=== PATIENT | male | born 1940 | race Caucasian/White ===

== ENCOUNTER 2017-09-11 11:04 | Inpatient (IN) | payer OTHER ==
[~2017-09-11] VITALS: Ht 177.8 cm; Wt 113.4 kg
[~2017-09-11 11:04] MED LIST: ACETAMINOPHEN-1 EAC3 PO; ALLOPURINOL300 M1 PO; ATORVASTATIN CA40 M1 PO; AZITHROMYCIN250 M1 PO; CARDIZEM LA120 MG PO; FISH OIL 1,2001 EAC1 PO; IRBESARTAN150 M1 PO; METOLAZONE2.5 M1 PO; MULTIVITAMINS1 EAC9 PO; POTASSIUM CHLO10 ME5 PO; PREDNISONE10 M2 PO; SAVAYSA30 MG PO; SPIRIVA18 MCG INH; TAMSULOSIN HCL0.4 M1 PO; TOPROL XL100 M1 PO; TORSEMIDE20 M1 PO; VENTOLIN HFA18 GM INH; ZETIA10 M1 PO
--- NOTE | 2017-09-11 11:36 | ED UPPER/LOWER EXTREMITY COMPL ---
History of Present Illness General Chief Complaint: Lower Extremity Problems Stated Complaint: ?CELLULITIS R LEG Source: patient, old records Exam Limitations: no limitations Vital Signs & Intake/Output Vital Signs & Intake/Output Vital Signs Date Time Temp Pulse Resp B/P B/P Pulse O2 O2 Flow FiO2 Mean Ox Delivery Rate 09/11 1115 98.4 60 16 122/80 98 Room Air Allergies Coded Allergies: NO KNOWN ALLERGIES (07/18/15) Reconcile Medications Acetaminophen With Codeine (Acetaminophen-Cod #3 Tablet) 300 MG-30 MG TABLET 1 TAB PO TIDPRN PRN PAIN CONTROL (Reported) Albuterol Sulfate (Ventolin Hfa) 90 MCG HFA.AER.AD 2 PUF INH Q4-6 PRN PRN COPD (Reported) Allopurinol 300 MG TABLET 1 TAB PO DAILY GOUT (Reported) Atorvastatin Calcium 40 MG TABLET 1 TAB PO DAILY HEART HEALTH (Reported) Azithromycin 250 MG TABLET 1 TAB PO DAILY Bronchitis Diltiazem HCl (Cardizem LA) 120 MG TAB.ER.24H 1 TAB PO DAILY HEART HEALTH ( Reported) Edoxaban Tosylate (Savaysa) 30 MG TABLET 1 TAB PO DAILY HEART HEALTH ( Reported) Ezetimibe (Zetia) 10 MG TABLET 1 TAB PO DAILY HEART HEALTH (Reported) Irbesartan 150 MG TABLET 1 TAB PO DAILY HEART HEALTH (Reported) Metolazone 2.5 MG TABLET 1 TAB PO SEE ADMIN CRITERIA Diuretic (Reported) One tab, every 4-5 days Metoprolol Succ XL (Toprol XL) 100 MG TAB.ER.24H 1 TAB PO DAILY HEART HEALTH (Reported) Multiple Vitamin (Multivitamins) 1 EACH TABLET 1 TAB PO DAILY VITAMIN SUPPORT (Reported) [place]-3 Fatty Acids/Fish Oil (Fish Oil 1,200 MG Softgel) 360 MG-1,200 MG CAPSULE.DR 2 SGL PO BID HEART HEALTH (Reported) Potassium Chloride 10 MEQ TAB.ER.PRT 3 TAB PO DAILY ELECTROLYTES (Reported) Prednisone 10 MG TABLET 0 PO DAILY COPD On Take -17 30 MG 18/17-2017 20 MG /- 10 MG Then stop. Tamsulosin HCl 0.4 MG CAP.ER.24H 1 CAP PO DAILY URINE FLOW (Reported) Tiotropium [place] (Spiriva) 18 MCG CAP.W.DEV 1 CAP INH DAILY COPD (Reported) Torsemide 20 MG TABLET 1 TAB PO DAILY HEART HEALTH (Reported) Triage Note: PT TO ED FOR R LL CELLULITIS SINCE WEDNESDAY, STARTED ON KEFLEX WEDNESDAY WITH IMPROVEMENT. Triage Nurses Notes Reviewed? yes Past History Travel History Traveled to [place] past 21 day No Medical History Any Pertinent Medical History? see below for history Neurological: NONE EENT: NONE Cardiovascular: hypertension, AFIB, CHF Respiratory: COPD, history of mild bronchitis and severe obstructive lung disease. Gastrointestinal: NONE Hepatic: NONE Renal: benign prost hyperplasia, "KIDNEY PROBLEMS" Musculoskeletal: gout, osteoarthritis Psychiatric: NONE Endocrine: NONE Blood Disorders: NONE Cancer(s): NONE SHEEPSKIN PICKLER/Reproductive: NONE Other Medical Hx: gout, history of prostate cancer status post radiation, History of MRSA: No History of VRE: No History of CDIFF: No Influenza Vaccine: 06/30/17 Surgical History Surgical History: none Psychosocial History Who do you live with Son What is your primary language Belarusian Tobacco Use: Never used ETOH Use: occasional use Illicit Drug Use: denies illicit drug use Progress Plan of Care: Orders Procedure Date/time Status Patient Data 09/11 1243 Active ED Holding Orders 09/11 1236 Active Admit to inpatient 09/11 1236 Active Vital Signs 09/11 1236 Active Code Status 09/11 1236 Active BLOOD CULTURE 09/11 1140 Active TROPONIN LEVEL 09/11 1140 Complete PARTIAL THROMBOPLASTIN TIME 09/11 1140 Complete PROTHROMBIN TIME 09/11 1140 Complete C-REACTIVE PROTEIN 09/11 1140 Complete COMPREHENSIVE METABOLIC PANEL 09/11 1140 Complete CBC WITHOUT DIFFERENTIAL 09/11 1140 Complete EKG 09/11 1140 Active Current Medications Sig/Joslyn Start time Last Medication Dose Stop Time Status Admin Potassium Chloride 60 MEQ ONCE ONE 09/11 1245 UNVr (K-Dur) 09/11 1246 Potassium Chloride 10 MEQ ONCE ONE 09/11 1245 UNVr 09/11 1246 Laboratory Tests 09/11/17 1200: Anion Gap 15, Estimated GFR 54 L, BUN/Creatinine Ratio 21.5, Glucose 127 H, Calcium 9.1, Total Bilirubin 1.0, AST 28, ALT 40, Alkaline Phosphatase 81, Troponin I < 0.01, C-Reactive Prot, Quant 4.5 H, Total Protein 6.0 L, Albumin 3.4 L, Globulin 2.6, Albumin/Globulin Ratio 1.3, PT 16.3 H, INR 1.56 H, APTT 36, CBC w Diff NO MAN DIFF REQ, RBC 3.98 L, MCV 98.4 H, MCH 32.6 H, RDW 14.1, MPV 7.5, Gran % 73.9, Lymphocytes % 15.1 L, Monocytes % 8.9, Eosinophils % 2.0, Basophils % 0.1, Absolute Granulocytes 5.6, Absolute Lymphocytes 1.1 L, Absolute Monocytes 0.7 H, Absolute Eosinophils 0.2, Absolute Basophils 0, PUBS MCHC 33.1 Microbiology 09/11 1200 BLOOD: Blood Culture - RECD 09/11 1150 BLOOD: Blood Culture - RECD Departure Departure Time of Disposition: 1236 Disposition: STILL A PATIENT Condition: Stable Clinical Impression Primary Impression: Cellulitis of right leg Secondary Impressions: Hypokalemia Referrals: Adin KENNEY,Mark Nelson (PCP/Family) Departure Forms: Customer Survey General Discharge Information Admission Note Spoke With: Khai May MD Documentation of Exam: Documentation of any treatments & extenuating circumstances including Concerns Regarding Discharge (functional status, medication knowledge or non-compliance, living conditions, etc.) that warrant an admission rather than observation: [ RIGHT LEG CELLULITIS FAILING OUTPATIENT ABX X 3 DAYS, INCREASE PAIN AND REDNESS ON RIGHT SIDE, NOW WITH SKIN OPENING, NEWLY DIAGNOSED DIABETIC. WILL REQUIRE WOUND CARE, LEG ELEVATION, IV ABX, PO/IV POTASSIUM, RECHECK ELECTROLYTES, SUSPECT WILL REQUIRE MULTIPLE DAY ADMISSION]
[2017-09-11 12:07] LABS: ABSOLUTE BASOPHIL COUNT 0 /CUMM (0.0-0.2); ABSOLUTE EOSINOPHIL COUNT 0.2 /CUMM (0.0-0.7); ABSOLUTE GRANULOCYTE CT 5.6 /CUMM (1.4-6.5); ABSOLUTE LYMPH COUNT 1.1 /CUMM (1.2-3.4); ABSOLUTE MONOCYTE COUNT 0.7 /CUMM (0.10-0.60); BASOPHIL % 0.1 % (0.0-2.0); GRANULOCYTE % 73.9 % (42.2-75.2); HEMATOCRIT 39.1 % (42-52); MEAN CORPUSCULAR HGB 32.6 PG (27.0-31.0); MEAN CORPUSCULAR HGB CONC 33.1 G/DL (33.0-37.0); MEAN CORPUSCULAR VOLUME 98.4 FL (80.0-94.0); MEAN PLATELET VOLUME 7.5 FL (7.4-10.4); PLATELET COUNT 282 /CUMM (130-400); RBC DISTRIBUTION WIDTH 14.1 % (11.5-14.5); RED BLOOD CELL CT 3.98 /CUMM (4.70-6.10); WHITE BLOOD CELL COUNT 7.6 /CUMM (4.8-10.8)
[2017-09-11 12:30] LABS: PT 16.3 SEC (9.4-12.5); PTT 36 SEC (25-37)
--- NOTE | 2017-09-11 13:40 | History & Physical ---
Gregor Guerrero 09/11/17 1339: General Information and HPI MD Statement: I have seen and personally examined SAAD CAST and documented this H&P. The patient is a 76 year old M who presented with a patient stated chief complaint of [right lower extremity cellulitis]. Source of Information: patient, old records Exam Limitations: no limitations History of Present Illness: This is 76-year-old man with medical history significant for CHF with diastolic dysfunction, A.fib on edoxaban, HTN, BPH, Prostate Ca s/p radiation(2003), CABG( 2003), prior [place] (2003), ADONIS not compliant with CPAP, recently discharged from [facility] in July 2017. Patient presented to the emergency department with a chief complaint of right lower extremity cellulitis. According to the patient the symptoms started on Wednesday as warm, red and tender lesion, he went to see his loss prevention associate on Wednesday who prescribed him by mouth Keflex and recommended to him that if the cellulitis did not improve to come to the emergency department for further evaluation, patient stated that the antibiotic take the edge of the tenderness but it's still painful and the lesion did not improve. Patient reports being diagnosed with a diabetes mellitus by his loss prevention associate currently is not on any medication. Patient deny any systemic fever, chills, trauma, insect bite. He also denies any chest pain, shortness of breath, heart racing, abdominal pain, nausea, vomiting, diarrhea, hematuria, dysuria. In ED patient was started on IV Unasyn, also received a total of 17 mEq of potassium, 10 IV and 60 by mouth as his potassium level was 2.8. Allergies/Medications Allergies: Coded Allergies: NO KNOWN ALLERGIES (07/18/15) Past History Travel History Traveled to [place] past 21 day No Medical History Neurological: NONE EENT: NONE Cardiovascular: hypertension, AFIB, CHF Respiratory: COPD, history of mild bronchitis and severe obstructive lung disease. Gastrointestinal: NONE Hepatic: NONE Renal: benign prost hyperplasia, "KIDNEY PROBLEMS" Musculoskeletal: gout, osteoarthritis Psychiatric: NONE Endocrine: NONE Blood Disorders: NONE Cancer(s): NONE [employer]IST/Reproductive: NONE Other Medical Hx: gout, history of prostate cancer status post radiation, History of MRSA: No History of VRE: No History of CDIFF: No Influenza Vaccine: 06/30/17 Surgical History Surgical History: none Past Family/Social History Psychosocial History ETOH Use: occasional use Illicit Drug Use: denies illicit drug use Review of Systems Review of Systems Constitutional: Reports: see HPI. Cardiovascular: Reports: see HPI. Respiratory: Reports: see HPI. GI: Reports: see HPI. Genitourinary: Reports: see HPI. Exam & Diagnostic Data Last 24 Hrs of Vital Signs/I&O Vital Signs Date Time Temp Pulse Resp B/P B/P Pulse O2 O2 Flow FiO2 Mean Ox Delivery Rate 09/11 2050 Room Air 09/11 1629 72 120/60 09/11 1629 72 120/60 09/11 1628 72 120/60 09/11 1602 98.1 72 20 120/60 97 Room Air 09/11 1433 98.7 70 20 123/60 98 Room Air 09/11 1249 98.3 73 20 114/63 96 Room Air 09/11 1115 98.4 60 16 122/80 98 Room Air Intake & Output 09/11 1600 09/11 0800 09/11 0000 Intake Total 340 Output Total Balance 340 Intake, IV 100 Intake, Oral 240 Patient 250 lb Weight Weight Reported by Patient Measurement Method Physical Exam General Appearance Alert, Oriented X3, Cooperative, No Acute Distress HEENT PERRLA, EOMI Neck Supple Cardiovascular Normal S1, Normal S2, IRREGULAR IRREGULAR Lungs Normal Air Movement Abdomen Normal Bowel Sounds, Soft, No Tenderness Extremities RIGHT LOWER EXTREMITY ERYTHEMA, WARMTH TO TOUCH, TENDER, +2 LOWER EXTREMITY EDEMA Last 24 Hrs of Labs/Murali: Laboratory Tests 09/11/17 1200: Anion Gap 15, Estimated GFR 54 L, BUN/Creatinine Ratio 21.5, Glucose 127 H, Hemoglobin A1c Pending, Calcium 9.1, Total Bilirubin 1.0, AST 28, ALT 40, Alkaline Phosphatase 81, Troponin I < 0.01, C-Reactive Prot, Quant 4.5 H, Total Protein 6.0 L, Albumin 3.4 L, Globulin 2.6, Albumin/Globulin Ratio 1.3, PT 16.3 H, INR 1.56 H, APTT 36, CBC w Diff NO MAN DIFF REQ, RBC 3.98 L, MCV 98.4 H, MCH 32.6 H, RDW 14.1, MPV 7.5, Gran % 73.9, Lymphocytes % 15.1 L, Monocytes % 8.9, Eosinophils % 2.0, Basophils % 0.1, Absolute Granulocytes 5.6, Absolute Lymphocytes 1.1 L, Absolute Monocytes 0.7 H, Absolute Eosinophils 0.2 , Absolute Basophils 0, PUBS MCHC 33.1 Microbiology 09/11 1200 BLOOD: Blood Culture - RECD 09/11 1150 BLOOD: Blood Culture - RECD Assessment/Plan Assessment: This is 76-year-old man with medical history significant for CHF with diastolic dysfunction, A.fib on edoxaban, HTN, BPH, Prostate Ca s/p radiation(2003), CABG( 2003), prior [place] (2003), ADONIS not compliant with CPAP, recently discharged from [facility] in July 2017. Patient presented to the emergency department with a chief complaint of right lower extremity cellulitis. Problem list: -Right lower extremity cellulitis -Hypokalemia. Plan: -Admit patient to general medicine floor -Continue IV Unasyn -ReLpetE potassium check BEP today -Leg elevation -Check hemoglobin A1c, magnesium -Accu-Chek, insulin sliding scale -Carbohydrate consistent diet -Pain pathway -DVT prophylaxis: Patient brought his edoxaban. -Full code As Ranked By This Provider Problem List: 1. Hypokalemia 2. Cellulitis of right leg Core Measures/Misc (05/16) Acute Coronary Syndrome ACS Diagnosis: No Congestive Heart Failure Congestive Heart Failure Diagnosis No Cerebrovascular Accident CVA/TIA Diagnosis: No VTE (View Protocol) VTE Risk Factors Age>40 No Mechanical VTE Prophylaxis d/t N/A MechProphylax Ordered No VTE Pharm Prophylaxis d/t NA PharmProphylax ordered Sepsis (View protocol) Sepsis Present: Yes Khai May MD 09/11/171917: General Information and HPI Allergies/Medications Home Med list Acetaminophen With Codeine (Acetaminophen-Cod #3 Tablet) 300 MG-30 MG TABLET 1 TAB PO TIDPRN PRN PAIN CONTROL (Reported) Albuterol Sulfate (Ventolin Hfa) 90 MCG HFA.AER.AD 2 PUF INH Q4-6 PRN PRN COPD (Reported) Allopurinol 300 MG TABLET 1 TAB PO DAILY GOUT (Reported) Amoxicillin/Potassium Clav (Augmentin 875-125 Tablet) 875 MG-125 MG TABLET 1 TAB PO BID CELLULITIS . Atorvastatin Calcium 40 MG TABLET 1 TAB PO DAILY HEART HEALTH (Reported) Diltiazem HCl (Cardizem LA) 120 MG TAB.ER.24H 1 TAB PO DAILY HEART HEALTH ( Reported) Edoxaban Tosylate (Savaysa) 30 MG TABLET 1 TAB PO DAILY HEART HEALTH ( Reported) Ezetimibe (Zetia) 10 MG TABLET 1 TAB PO DAILY HEART HEALTH (Reported) Irbesartan 150 MG TABLET 1 TAB PO DAILY HEART HEALTH (Reported) Metolazone 2.5 MG TABLET 1 TAB PO SEE ADMIN CRITERIA Diuretic (Reported) LAST TAKEN: 09/13/17 @ 10 AM Metoprolol Succ XL (Toprol XL) 100 MG TAB.ER.24H 1 TAB PO DAILY HEART HEALTH (Reported) Multiple Vitamin (Multivitamins) 1 EACH TABLET 1 TAB PO DAILY VITAMIN SUPPORT (Reported) [place]-3 Fatty Acids/Fish Oil (Fish Oil 1,200 MG Softgel) 360 MG-1,200 MG CAPSULE.DR 2 SGL PO BID HEART HEALTH (Reported) Potassium Chloride 20 MEQ TAB.ER.PRT 2 TAB PO DAILY ELECTROLYTE . Tamsulosin HCl 0.4 MG CAP.ER.24H 1 CAP PO DAILY URINE FLOW (Reported) Tiotropium [place] (Spiriva) 18 MCG CAP.W.DEV 1 CAP INH DAILY COPD (Reported) Torsemide 20 MG TABLET 1 TAB PO DAILY HEART HEALTH (Reported) Attending MD Review Statement Attending Statement Attending MD Statement: examined this patient, discuss w/resident/PA/BUFFER COPPER, agreed w/resident/PA/BUFFER COPPER, reviewed EMR data (avail) Attending Assessment/Plan: 76M PMH CHF with diastolic dysfunction, A.fib on edoxaban, HTN, BPH, Prostate Ca s/p radiation(2003), CABG(2003), prior [place] (2003), ADONIS presenting with 5 days of right lower extremity erythema, swelling, and pain consistent with cellulitis. Placed on Cephalexin 3 days ago by PCP, with worsening of erythema and swelling since then. No systemic symptoms, feels well otherwise, normal WBC, afebrile. K 2.8, no dietary changes, takes supplemental potassium, as well as Metolazone and Torsemide. EKG NSR. 1. RLE cellulitis 2. Failure of outpatient treatment 3. Hypokalemia Plan - Admit to general medicine - Unasyn - Blood cultures - Leg elevation - Continue home medications - Monitor potassium, replete today - Continue home dose of supplemental potassium - DVT PPx
[2017-09-11 16:02] VITALS: BP 120/60
--- NOTE | 2017-09-11 19:19 | Admission Certification ---
Admission Certification Certification Statement - As attending physician, I certify that at the time of - admission, based on clinical presentation, severity of - symptoms, need for further diagnostic testing and - therapeutic interventions, and risk of adverse outcomes - without in-hospital treatment, in my clinical assessment, - this patient requires an acute hospital stay for a minimum - of two nights or longer. I have also considered psychsocial - factors such as support system, advanced age, financial - issues, cognitive issues, and failed out-patient treatments, - past re-admission history, safety of patient, and lack of - compliance as applicable. Specific rationale supporting this admission is: RLE cellulitis failing outpatient treatment with hypokalemia
[2017-09-11 22:33] VITALS: BP 110/58
[2017-09-12 06:00] VITALS: BP 112/70
--- NOTE | 2017-09-12 08:48 | PN- Housestaff ---
Deisy KENNEY,Karen 09/12/17 0847: Subjective Follow-up For: -Right lower extremity cellulitis -Hypokalemia. Subjective: Patient is seen and examined at bedside, continues to complain of mild pain in his right lower extremity, denies fever, chills, nausea, vomiting Review of Systems Constitutional: Denies: no symptoms. Cardiovascular: Denies: no symptoms. Respiratory: Denies: no symptoms. Gastrointestinal: Denies: no symptoms. Genitourinary: Denies: no symptoms. Musculoskeletal: Denies: no symptoms. Objective Last 24 Hrs of Vital Signs/I&O Vital Signs Date Time Temp Pulse Resp B/P B/P Pulse O2 O2 Flow FiO2 Mean Ox Delivery Rate 09/12 1045 110/70 09/12 1044 110/70 09/12 1043 112/70 09/12 0600 97.5 65 20 112/70 96 Room Air 09/11 2233 97.9 64 20 110/58 96 Room Air 09/11 2051 Room Air 09/11 1629 72 120/60 09/11 1629 72 120/60 09/11 1628 72 120/60 09/11 1602 98.1 72 20 120/60 97 Room Air 09/11 1433 98.7 70 20 123/60 98 Room Air 09/11 1249 98.3 73 20 114/63 96 Room Air Intake & Output 09/12 1600 09/12 0800 09/12 0000 Intake Total 260 120 Output Total 450 Balance 260 -330 Intake, IV 140 Intake, Oral 120 120 Output, Urine 450 Patient 250 lb Weight Weight Estimated Measurement Method Physical Exam General Appearance: Alert, Oriented X3, Cooperative, No Acute Distress HEENT: Atraumatic, PERRLA, EOMI Cardiovascular: Normal S1, Normal S2, No Murmurs Lungs: Clear to Auscultation Abdomen: Normal Bowel Sounds, Soft, No Tenderness Neurological: Normal Speech Extremities: sWELLING AND ERYTHEMA OF RIGHT LOWER EXTREMITY, 2+ PITTING EDEMA Vascular: Normal Pulses Assessment/Plan Assessment: This is 76-year-old man with medical history significant for CHF with diastolic dysfunction, A.fib on edoxaban, HTN, BPH, Prostate Ca s/p radiation(2003), CABG( 2003), prior [place] (2003), ADONIS not compliant with CPAP, recently discharged from [facility] in July 2017. Patient presented to the emergency department with a chief complaint of right lower extremity cellulitis. #Right lower extremity cellulitis Continue to monitor on GEN med floor Continue IV Unasyn Leg elevation His fingerstick glucose were normal Follow up on hemoglobin A1c Follow-up on blood culture Was monitoring of vitals, CBC Hypokalemia Improved Continue to monitor BEP Patient is full code DVT prophylaxis with subcutaneous heparin Heart healthy diet Problem List: 1. Hypokalemia 2. Cellulitis of right leg Pain Ratin Pain Location: RIGHT LEG Pain Goal: Remain pain free Pain Plan: PER PATHWAY Tomorrow's Labs & Rationales: CBC BEP Khai May MD 09/12/17 1655: Attending MD Review Statement Attending Statement Attending MD Statement: examined this patient, discuss w/resident/PA/LINOLEUM FLOOR INSTALLER, agreed w/resident/PA/LINOLEUM FLOOR INSTALLER, reviewed EMR data (avail) Attending Assessment/Plan: 76M PMH CHF with diastolic dysfunction, A.fib on edoxaban, HTN, BPH, Prostate Ca s/p radiation(2003), CABG(2003), prior [place] (2003), ADONIS presenting with 5 days of right lower extremity erythema, swelling, and pain consistent with cellulitis. Placed on Cephalexin 3 days ago by PCP, with worsening of erythema and swelling since then. No systemic symptoms, feels well otherwise, normal WBC, afebrile. K 2.8, no dietary changes, takes supplemental potassium, as well as Metolazone and Torsemide. EKG NSR. Leg is improved today, erythema has receded but still present on calf. No systemic symptoms, afebrile. K 3.5. 1. RLE cellulitis 2. Failure of outpatient treatment 3. Hypokalemia Plan - Admit to general medicine - Unasyn - Blood cultures - Leg elevation - Continue home medications - Monitor potassium - Continue home dose of supplemental potassium - DVT PPx
[2017-09-12 09:36] LABS: ABSOLUTE BASOPHIL COUNT 0 /CUMM (0.0-0.2); ABSOLUTE EOSINOPHIL COUNT 0.2 /CUMM (0.0-0.7); ABSOLUTE GRANULOCYTE CT 4.8 /CUMM (1.4-6.5); ABSOLUTE MONOCYTE COUNT 0.6 /CUMM (0.10-0.60); BASOPHIL % 0.4 % (0.0-2.0); EOSINOPHIL % 2.4 % (0-5); GRANULOCYTE % 73.1 % (42.2-75.2); HEMATOCRIT 34.7 % (42-52); MEAN CORPUSCULAR HGB CONC 34.3 G/DL (33.0-37.0); MEAN CORPUSCULAR VOLUME 96.1 FL (80.0-94.0); MEAN PLATELET VOLUME 7.9 FL (7.4-10.4); PLATELET COUNT 279 /CUMM (130-400); RBC DISTRIBUTION WIDTH 13.6 % (11.5-14.5); RED BLOOD CELL CT 3.61 /CUMM (4.70-6.10); WHITE BLOOD CELL COUNT 6.5 /CUMM (4.8-10.8)
[2017-09-12 14:29] VITALS: BP 100/50
[2017-09-12 22:38] VITALS: BP 110/62
[2017-09-13 07:00] VITALS: BP 122/64
--- NOTE | 2017-09-13 07:31 | PN- Housestaff ---
Deisy KENNEY,[facility] 09/13/17 0731: Subjective Follow-up For: -Right lower extremity cellulitis -Hypokalemia. Subjective: Patient is seen and examined at bedside, continues to complain of mild pain in his right lower extremity, denies fever, chills, nausea, vomiting Review of Systems Constitutional: Denies: no symptoms. Cardiovascular: Denies: no symptoms. Respiratory: Denies: no symptoms. Gastrointestinal: Denies: no symptoms. Genitourinary: Denies: no symptoms. Musculoskeletal: Denies: no symptoms. Skin: Denies: no symptoms. Objective Last 24 Hrs of Vital Signs/I&O Vital Signs Date Time Temp Pulse Resp B/P B/P Pulse O2 O2 Flow FiO2 Mean Ox Delivery Rate 09/13 1124 97.8 88 18 122/64 09/13 1124 97.8 88 18 122/64 09/13 1122 97.8 88 18 122/64 09/13 0700 97.8 88 18 122/64 94 Room Air 09/12 2238 98.2 56 20 110/62 96 Room Air 09/12 1429 97.6 67 20 100/50 96 Room Air Intake & Output 09/13 1600 09/13 0800 09/13 0000 Intake Total 430 680 Output Total 400 Balance 30 680 Intake, IV 230 Intake, Oral 200 680 Output, Urine 400 Physical Exam General Appearance: Alert, Oriented X3, Cooperative, No Acute Distress HEENT: Atraumatic, PERRLA, EOMI, Mucous Membr. moist/pink Cardiovascular: Regular Rate, Normal S1, Normal S2, No Murmurs Lungs: Clear to Auscultation Abdomen: Normal Bowel Sounds, Soft, No Tenderness Neurological: Normal Speech, Strength at 5/5 X4 Ext, Normal Tone Extremities: No Clubbing, No Cyanosis, RLE 2 + pitting edema and redness which is receding and looks less red today Vascular: Normal Pulses Assessment/Plan Assessment: This is 76-year-old man with medical history significant for CHF with diastolic dysfunction, A.fib on edoxaban, HTN, BPH, Prostate Ca s/p radiation(2003), CABG( 2003), prior [place] (2003), ADONIS not compliant with CPAP, recently discharged from [facility] in July 2017. Patient presented to the emergency department with a chief complaint of right lower extremity cellulitis. #Right lower extremity cellulitis Continue to monitor on GEN med floor Continue IV Unasyn day Leg elevation His fingerstick glucose were normal Follow up on hemoglobin A1c blood culture ngative Was monitoring of vitals, CBC Hypokalemia Improved continue his home dose of KCL 30 mg daily Continue to monitor BEP If if patient continues to be stable most likely he will be discharged home tomorrow on by mouth antibiotics Patient is full code DVT prophylaxis with subcutaneous heparin Heart healthy diet Problem List: 1. Hypokalemia 2. Cellulitis of right leg Pain Ratin Pain Location: RLE Pain Goal: Pain 4 or less Pain Plan: pathway Tomorrow's Labs & Rationales: cbc bep DVT/Prophylaxis: mechanical, pharmacological Khai May MD 09/13/17 1248: Attending MD Review Statement Attending Statement Attending MD Statement: examined this patient, discuss w/resident/PA/WOOD ROUTER, agreed w/resident/PA/WOOD ROUTER, reviewed EMR data (avail) Attending Assessment/Plan: 76M PMH CHF with diastolic dysfunction, A.fib on edoxaban, HTN, BPH, Prostate Ca s/p radiation(2003), CABG(2003), prior [place] (2003), ADONIS presenting with 5 days of right lower extremity erythema, swelling, and pain consistent with cellulitis. Placed on Cephalexin 3 days ago by PCP, with worsening of erythema and swelling since then. No systemic symptoms, feels well otherwise, normal WBC, afebrile. K 2.8, no dietary changes, takes supplemental potassium, as well as Metolazone and Torsemide. EKG NSR. Leg is improved today, erythema has receded but still present on calf. No systemic symptoms, afebrile. Hypokalemia resolved. 1. RLE cellulitis 2. Failure of outpatient treatment 3. Hypokalemia Plan - Continue on general medicine - Unasyn, switch to Augmentin tomorrow - Blood cultures - Leg elevation - Continue home medications - Monitor potassium - Continue home dose of supplemental potassium - DVT PPx
[2017-09-13 09:18] LABS: ABSOLUTE BASOPHIL COUNT 0 /CUMM (0.0-0.2); ABSOLUTE EOSINOPHIL COUNT 0.1 /CUMM (0.0-0.7); ABSOLUTE GRANULOCYTE CT 6.2 /CUMM (1.4-6.5); ABSOLUTE LYMPH COUNT 0.9 /CUMM (1.2-3.4); ABSOLUTE MONOCYTE COUNT 0.7 /CUMM (0.10-0.60); BASOPHIL % 0.3 % (0.0-2.0); EOSINOPHIL % 1.6 % (0-5); GRANULOCYTE % 77.6 % (42.2-75.2); HEMATOCRIT 36.2 % (42-52); MEAN CORPUSCULAR HGB 32.7 PG (27.0-31.0); MEAN CORPUSCULAR HGB CONC 33.7 G/DL (33.0-37.0); MEAN CORPUSCULAR VOLUME 97.1 FL (80.0-94.0); MEAN PLATELET VOLUME 7.8 FL (7.4-10.4); PLATELET COUNT 296 /CUMM (130-400); RBC DISTRIBUTION WIDTH 14.2 % (11.5-14.5); RED BLOOD CELL CT 3.73 /CUMM (4.70-6.10)
--- NOTE | 2017-09-13 09:43 | Patient Discharge Instructions ---
Discharge Instructions General Discharge Information You were seen/treated for: cellulitis of the right leg Special Instructions: 1- please follow up with your PCP in 1 week of discharge 2- please elevat the right leg 3- Please get yout potassium checked in 1 week of dsicharge 4- please follow up with your duty officer in 1 week of discharge Diet Continue normal diet: Yes Activity Full Activity/No Limits: Yes Acute Coronary Syndrome Inclusion Criteria At DC or during hospital stay patient has or had the following: ACS DIAGNOSIS No Discharge Core Measures Meds if any: Prescribed or Continued at Discharge Meds if any: NOT Prescribed or Continued at Discharge Congestive Heart Failure Inclusion Criteria At DC or during hospital stay patient has or had the following: CHF DIAGNOSIS No Discharge Core Measures Meds if any: Prescribed or Continued at Discharge Meds if any: NOT Prescribed or Continued at Discharge Cerebrovascular accident Inclusion Criteria At DC or during hospital stay patient has or had the following: CVA/TIA Diagnosis No Discharge Core Measures Meds if any: Prescribed or Continued at Discharge Meds if any: NOT Prescribed or Continued at Discharge Venous thromboembolism Inclusion Criteria VTE Diagnosis No VTE Type NONE VTE Confirmed by (Test) NONE Discharge Core Measures - Per Current guidelines, there needs to be overlap - treatment for the first 5 days of Warfarin therapy. - If discharged on Warfarin prior to 5 days of - overlap therapy, the patient will need to be - assessed for post discharge needs including - *Post discharge parental anticoagulation - *Warfarin and/or parental anticoagulation education - *Follow up date to check INR post discharge At least 5 days overlap therapy as Inpatient No Meds if any: Prescribed or Continued at Discharge Note: Overlap Therapy is Warfarin and Anticoagulant Meds if any: NOT Prescribed or Continued at Discharge
[2017-09-13 14:36] VITALS: BP 120/72
[2017-09-13 21:59] VITALS: BP 118/62
--- NOTE | 2017-09-14 07:17 | PN- Housestaff ---
Deisy KENNEY,Karen 09/14/17 0717: Subjective Follow-up For: -Right lower extremity cellulitis -Hypokalemia. Subjective: Patient is seen and examined at bedside, continues to complain of mild pain in his right lower extremity, denies fever, chills, nausea, vomiting, no erythema in his right lower extremity is receding and looks darker Review of Systems Constitutional: Denies: no symptoms. Cardiovascular: Denies: no symptoms. Respiratory: Denies: no symptoms. Gastrointestinal: Denies: no symptoms. Musculoskeletal: Denies: no symptoms. Skin: Reports: erythema, lesions. Neurological/Psychological: Denies: no symptoms. Objective Last 24 Hrs of Vital Signs/I&O Vital Signs Date Time Temp Pulse Resp B/P B/P Pulse O2 O2 Flow FiO2 Mean Ox Delivery Rate 09/14 0721 98.3 81 20 118/66 94 Room Air 09/13 2159 98.4 64 20 118/62 94 Room Air 09/13 1436 98.2 79 20 120/72 95 09/13 1124 97.8 88 18 122/64 09/13 1124 97.8 88 18 122/64 09/13 1122 97.8 88 18 122/64 Intake & Output 09/14 1600 09/14 0800 09/14 0000 Intake Total 360 360 Output Total Balance 360 360 Intake, IV 260 120 Intake, Oral 100 240 Number 0 Bowel Movements Physical Exam General Appearance: Alert, Oriented X3, Cooperative, No Acute Distress HEENT: Atraumatic, PERRLA, EOMI, Mucous Membr. moist/pink Neck: Supple, No JVD, No thryomegaly Cardiovascular: Normal S1, Normal S2, No Murmurs Lungs: Clear to Auscultation Abdomen: Normal Bowel Sounds, Soft, No Tenderness Neurological: Normal Speech, Strength at 5/5 X4 Ext Extremities: No Clubbing, No Cyanosis, Rt LE swelling and edema which is receding and looks darker and less erythematous Vascular: Normal Pulses Assessment/Plan Assessment: This is 76-year-old man with medical history significant for CHF with diastolic dysfunction, A.fib on edoxaban, HTN, BPH, Prostate Ca s/p radiation(2003), CABG( 2003), prior CT (2003), ADONIS not compliant with CPAP, recently discharged from [facility] in July 2017. Patient presented to the emergency department with a chief complaint of right lower extremity cellulitis. #Right lower extremity cellulitis Continue to monitor on GEN med floor Continue IV Unasyn Leg elevation His fingerstick glucose were normal Follow up on hemoglobin A1c blood culture ngative Was monitoring of vitals, CBC Hypokalemia Improved continue his home dose of KCL 30 mg daily Continue to monitor BEP The patient is stable for discharge today on by mouth Augmentin to finish a course of 7 days Patient is full code DVT prophylaxis with subcutaneous heparin Heart healthy diet Problem List: 1. Hypokalemia 2. Cellulitis of right leg Pain Ratin Pain Location: RLE Pain Goal: Remain pain free Pain Plan: pathway Tomorrow's Labs & Rationales: N/A DVT/Prophylaxis: mechanical, pharmacological Khai May MD 09/14/17 1230: Attending MD Review Statement Attending Statement Attending MD Statement: examined this patient, discuss w/resident/PA/SENIOR ANIMATOR, agreed w/resident/PA/SENIOR ANIMATOR, reviewed EMR data (avail) Attending Assessment/Plan: 76M PMH CHF with diastolic dysfunction, A.fib on edoxaban, HTN, BPH, Prostate Ca s/p radiation(2003), CABG(2003), prior CT (2003), ADONIS presenting with 5 days of right lower extremity erythema, swelling, and pain consistent with cellulitis. Placed on Cephalexin 3 days ago by PCP, with worsening of erythema and swelling since then. No systemic symptoms, feels well otherwise, normal WBC, afebrile. K 2.8, no dietary changes, takes supplemental potassium, as well as Metolazone and Torsemide. EKG NSR. Leg much improved today. Erythema has nearly resolved. There is no more warmth or swelling. Pain is 0/10. Afebrile, stable vitals, labs reviewed. 1. RLE cellulitis 2. Failure of outpatient treatment 3. Hypokalemia Plan - Stable for discharge home - Continue Augmentin to complete 7 day course - Leg elevation - Continue home medications - Will increase potassium dose on discharge
[2017-09-14 07:21] VITALS: BP 118/66
[2017-09-14 08:31] LABS: ABSOLUTE BASOPHIL COUNT 0 /CUMM (0.0-0.2); ABSOLUTE EOSINOPHIL COUNT 0.2 /CUMM (0.0-0.7); ABSOLUTE GRANULOCYTE CT 7.1 /CUMM (1.4-6.5); ABSOLUTE LYMPH COUNT 0.9 /CUMM (1.2-3.4); ABSOLUTE MONOCYTE COUNT 0.8 /CUMM (0.10-0.60); BASOPHIL % 0.1 % (0.0-2.0); EOSINOPHIL % 1.7 % (0-5); HEMATOCRIT 36.7 % (42-52); MEAN CORPUSCULAR HGB CONC 33.8 G/DL (33.0-37.0); MEAN CORPUSCULAR VOLUME 97.5 FL (80.0-94.0); MEAN PLATELET VOLUME 7.8 FL (7.4-10.4); PLATELET COUNT 284 /CUMM (130-400); RBC DISTRIBUTION WIDTH 14.5 % (11.5-14.5); RED BLOOD CELL CT 3.77 /CUMM (4.70-6.10); WHITE BLOOD CELL COUNT 8.8 /CUMM (4.8-10.8)
--- NOTE | 2017-09-14 08:49 | Discharge Summary ---
Visit Information Visit Dates Admission Date: 09/11/17 Discharge Date: 09/14/17 Hospital Course Course Attending Physician: Khai May MD Primary Care Physician: Adin KENNEY,Mark Nelson [facility] Course: This is 76-year-old man with medical history significant for CHF with diastolic dysfunction, A.fib on edoxaban, HTN, BPH, Prostate Ca s/p radiation(2003), CABG( 2003), prior CA (2003), ADONIS not compliant with CPAP, recently discharged from [facility] in July 2017. Patient presented to the emergency department with a chief complaint of right lower extremity cellulitis. #Right lower extremity cellulitis Was monitored on GEN med floor, was treated with IV Unasyn day and Leg elevation His fingerstick glucose were normal hemoglobin A1c was 5.9 blood culture ngative Hypokalemia On admission the patient had potassium of 2.8 which subsequently improved after repleting his potassium. He was kept on his home dose of KCL 30 mg daily On discharge Will home dose was increased to 40 mEq daily, the patient was advised to follow up with his marketing copywriter and to get his BEP checked in a few days Patient is full code DVT prophylaxis with subcutaneous heparin Heart healthy diet Allergies: Coded Allergies: NO KNOWN ALLERGIES (07/18/15) Disposition Summary Disposition Principal Diagnosis: Right lower extremity cellulitis Additional Diagnosis: Hypokalemia Discharge Disposition: home or self care Discharge Instructions General Discharge Information Code Status: Full Code Patient's Diet: Heart healthy Patient's Activity: As tolerated Follow-Up Instructions/Appts: 1- please follow up with your PCP in 1 week of discharge 2- please elevat the right leg 3- Please get yout potassium checked in 1 week of dsicharge 4- please follow up with your marketing copywriter in 1 week of discharge Medications at Discharge Discharge Medications: Stop taking the following medications: Potassium Chloride (Potassium Chloride) 10 MEQ TAB.ER.PRT ORAL DAILY Qty = 360 Continue taking these medications: Tiotropium [place] (Spiriva) 18 MCG CAP.W.DEV 1 Capsule Inhale through mouth DAILY Qty = 30 Comments: LAST TAKEN: 09/14/17 @ 10 AM Allopurinol (Allopurinol) 300 MG TABLET 1 Tablet ORAL DAILY Qty = 30 Comments: LAST TAKEN: 09/14/17 @ 10 AM Tamsulosin HCl (Tamsulosin HCl) 0.4 MG CAP.ER.24H 1 Capsule ORAL DAILY Qty = 30 Comments: Last Taken: 09/14/17 @ 10 AM Diltiazem HCl (Cardizem LA) 120 MG TAB.ER.24H 1 Tablet ORAL DAILY Qty = 90 Comments: Last Taken: 09/14/17 @ 10 AM Irbesartan (Irbesartan) 150 MG TABLET 1 Tablet ORAL DAILY Qty = 90 Comments: NOT TAKEN IN HOSPITAL Ezetimibe (Zetia) 10 MG TABLET 1 Tablet ORAL DAILY Qty = 90 Comments: Last Taken: 09/14/17 @ 10 AM Torsemide (Torsemide) 20 MG TABLET 1 Tablet ORAL DAILY Qty = 135 Comments: LAST TAKEN: 09/14/17 @ 10 AM Atorvastatin Calcium (Atorvastatin Calcium) 40 MG TABLET 1 Tablet ORAL DAILY Qty = 90 Comments: Last Taken: 09/13/86 Time: 5 am Metoprolol Succ XL (Toprol XL) 100 MG TAB.ER.24H 1 Tablet ORAL DAILY Qty = 90 Comments: Last TakeN: 09/14/17 @ 10 AM Edoxaban Tosylate (Savaysa) 30 MG TABLET 1 Tablet ORAL DAILY Qty = 90 Comments: Last Taken: 09/13/17 @ 10 PM Albuterol Sulfate (Ventolin Hfa) 90 MCG HFA.AER.AD 2 Puff Inhale through mouth EVERY 4-6 HOURS NEEDED as needed for COPD Qty = 18 Acetaminophen With Codeine (Acetaminophen-Cod #3 Tablet) 300 MG-30 MG TABLET 1 Tablet ORAL THREE TIMES A DAY NEEDED as needed for PAIN CONTROL Qty = 90 [place]-3 Fatty Acids/Fish Oil (Fish Oil 1,200 MG Softgel) 360 MG-1,200 MG CAPSULE.DR 2 SGL ORAL TWICE DAILY Multiple Vitamin (Multivitamins) 1 EACH TABLET 1 Tablet ORAL DAILY Metolazone (Metolazone) 2.5 MG TABLET 1 Tablet ORAL SEE INSTRUCTIONS Instructions: LAST TAKEN: 09/13/17 @ 10 AM Start taking the following new medications: Amoxicillin/Potassium Clav (Augmentin 875-125 Tablet) 875 MG-125 MG TABLET 1 Tablet ORAL TWICE DAILY Qty = 6 No Refills Instructions: . Potassium Chloride (Potassium Chloride) 20 MEQ TAB.ER.PRT 2 Tablet ORAL DAILY Qty = 60 No Refills Instructions: . Copies To: Adin KENNEY,Mark Nelson
[2017-09-14] MEDS ORDERED: AUGMENTIN 875-1 EACH PO ×2 (09:17→10:47)
[2017-09-14] MEDS ORDERED: POTASSIUM CHLO20 ME2 PO ×2 (09:22→10:47)
[2017-09-14 10:55] VITALS: BP 118/66
== END 2017-09-14 12:16 | DRG 603 ==
LOC: ERH 11:04 → ERHI 12:36 → 2NA 12:36 → ENRESERV 14:04 → ENTRNSPT 15:12 → 2NA 15:18 → CMPTRNSPT 16:09 → ENPENDDIS 09-14 10:40 → 2NA 09-14 12:16
PROVIDERS: Emergency Medicine; Internal Medicine Hematology & Oncology; Student in an Organized Health Care Education/Training Program
DX: L03.115 Cellulitis of right lower limb (principal); I11.0 Hypertensive heart disease with heart failure; I50.32 Chronic diastolic (congestive) heart failure; I48.91 Unspecified atrial fibrillation; E87.6 Hypokalemia; N40.0 Benign prostatic hyperplasia without lower urinary tract symptoms; Z79.01 Long term (current) use of anticoagulants; Z85.46 Personal history of malignant neoplasm of prostate; Z92.3 Personal history of irradiation; I25.2 Old myocardial infarction; Z95.1 Presence of aortocoronary bypass graft; I25.10 Atherosclerotic heart disease of native coronary artery without angina pectoris; G47.33 Obstructive sleep apnea (adult) (pediatric); Z91.19 Patient's noncompliance with other medical treatment and regimen; J44.9 Chronic obstructive pulmonary disease, unspecified; M10.9 Gout, unspecified; M19.90 Unspecified osteoarthritis, unspecified site
CPT/HCPCS: 2NASP; 36415; 82436; 87040; 93005; 93010; J3490; J7508